=== PATIENT | female | born 1995 | race Hispanic/Latino ===

== ENCOUNTER 2016-08-17 05:27 | Inpatient (IN) | payer OTHER ==
[~2016-08-17] VITALS: Ht 159.4 cm; Wt 83.9 kg
[~2016-08-17 05:27] MED LIST: Docusate Sodium PO; FERR325T39 PO; HYDR-4003 PO; Ibuprofen PO; NOMED; Oxycodone/Acetaminophen PO; PREN1TAB25 PO
[2016-08-17] MEDS ORDERED: Sodium Citrate-Citric Acid 15 mL Solution PO SCH (06:00)
[2016-08-17] MEDS ORDERED: Methylergonovine 0.2 mg/mL Inj IM PRN (06:00)
[2016-08-17] MEDS ORDERED: CeFAZolin Inj 2 GM in IV Premix 1 EACH IV SCH (06:00)
[2016-08-17] MEDS ORDERED: Lactated Ringer's 1,000 ML IV SCH ×2 (06:00→08:42)
[2016-08-17] MEDS ORDERED: Oxytocin 10 Unit/mL Inj IM PRN ×2 (06:00→08:45)
[2016-08-17] MEDS ORDERED: Hemorrhage Kit, Post Partum XX ONE ×2 (06:00→08:45)
[2016-08-17] MEDS ORDERED: Carboprost 250 mCg/mL Inj IM PRN (06:00)
[2016-08-17 06:27] LABS: Mean Corpuscular Hemoglobin 28.2 pg (27.0-35.0); Mean Corpuscular Volume 84.7 fL (81-100)
[2016-08-17] MEDS ORDERED: Morphine PF 1 mg/mL 10 mL Inj INTRATHEC ONE (08:45)
[2016-08-17] MEDS ORDERED: EPHEDrine Sulfate 50 mg/mL Inj IVPUSH PRN (08:45)
[2016-08-17] MEDS ORDERED: Acetaminophen IV 1,000 MG in IV Premix 1 EACH IV PRN (08:45)
[2016-08-17] MEDS ORDERED: Sodium Chloride LOK Flush 10 mL Syringe IVFLUSH PRN (08:45)
[2016-08-17] MEDS ORDERED: LANOlin HPA 7 Gm Ointment TOPICAL PRN (08:45)
[2016-08-17] MEDS ORDERED: HYDROmorphone 1 mg/mL Inj IVPUSH PRN (08:45)
[2016-08-17] MEDS ORDERED: Dexamethasone 4 mg/mL Inj IVPUSH PRN (08:45)
[2016-08-17] MEDS ORDERED: Ondansetron 2 mg/mL 2 mL Inj IVPUSH PRN (08:45)
[2016-08-17] MEDS ORDERED: Oxytocin 30 Units/500 mL LR 30 UNITS in IV Premix 1 EACH IV PRN (08:45)
[2016-08-17] MEDS ORDERED: hydrOXYzine Pamoate 25 mg Capsule PO PRN (08:45)
[2016-08-17] MEDS ORDERED: fentaNYL-PF 50 mCg/mL 2 mL Inj IVPUSH PRN (08:45)
[2016-08-17] MEDS ORDERED: MetoCLOpramide 5 mg/mL 2 mL Inj IVPUSH PRN (08:45)
[2016-08-17] MEDS ORDERED: Atropine 0.4 mg/mL Inj IV PRN (08:45)
--- NOTE | 2016-08-17 08:45 | PCM.HPANE ---
Patient Data Date of Service: Aug 17, 2016 (0700) Surgeon Admitting Provider:Aram Miguel MD Attending Provider:Aram Miguel MD Primary Care Physician:Corey Marcos MD Other Provider:Guerrero Romero Anesthesia Reason for Visit repeat section repeat section Ht/WT & BMI Body Mass Index Allergies Coded Allergies: No Known Allergies (Verified Allergy, Unknown, 12/28/13) Diabetes History Hx Diabetes?: No Medications Reported Medications Vit#96/Ferrous Fum/FA ( Tablet)1 Each Tablet1 Each PO DAILY 12/28/13 No Historical Medication Ea 02/26/13 Discontinued Reported Medications Ferrous Sulfate (Iron)325 Mg [id number] Mg PO BID 12/28/13 Discontinued Scripts Hydrocodone-Acetaminophen 5-325 mg 1 Each Tablet1 Tablet PO QID PRN For Pain #8 TABLET Ref 0 Prov:Shun Peterson PAC 04/10/16 [Docusate Sodium] (Colace)100 MG CAPSULE No Conflict [id number] Mg PO BID #30 CAPSULE Ref 1 Prov:Aram Miguel MD 01/01/14 [Oxycodone/Acetaminophen] (Percocet 5/325 mg)1 TAB TABLET No Conflict Check1-2 Tab PO Q3H PRN For Pain #30 TABLET Ref 0 Prov:Aram Miguel MD 01/01/14 [Ibuprofen] (Motrin)800 MG TABLET No Conflict [id number] Mg PO Q6H PRN For Pain # 30 TABLET Ref 1 Prov:Aram Miguel MD 01/01/14 History Cardiovascular History: Denies:: Congestive Heart Failure Hypertension Respiratory History: Denies:: Tuberculosis Hx Surgeries?: No Hx Diabetes: No Hx Alcohol Use: NoHx Substance Use: No Smoking Status: Never Smoker Have You Smoked inLast 12 mo: No Stop/Bang Risk Assessment Category Category 1A: Patient has history of documented sleep apnea, and HAS NOT received any narcotic, sedative or anesthesia administration during this stay. Category 1B: Patient has history of documented sleep apnea, and HAS received any narcotic , sedative or anesthesia administration during this stay Category 2: Patient has SUSPECTED Obstructive Sleep Apnea, and HAS received any narcotic , sedative or anesthesia administration during this stay. Category 3: Patient has SUSPECTED Obstructive Sleep Apnea and HAS NOT received narcotic, sedative or anesthesia administration during this stay. Category 4: Outpatient in Procedural Areas with known sleep apnea or who screen positive for High Risk via the STOP/BANG questionnaire. Exam Exam General Appearance: Alert, Oriented X3, Cooperative, No Acute Distress HEENT/AIRWAY: MP 2, Neck Movement (FROM), Mouth Opening (3 FBMO) Lungs: Clear to Auscultation, Normal Air Movement Heart: Exam Unremarkable, Regular Rate/Rhythm, No Murmurs/Rubs/Gallops Meds/Labs/Diagnostics Admission Meds Current Medications Lactated Ringer's (Lr) 1,000 ml @ 125 mls/hr Q8H IV Last administered on 06:21; Start 08/17/16 at 06:00; Stop 08/17/16 at 13:59 Citric Acid/ Sodium Citrate (Bicitra) 30 ml PREOP PO Last administered on 07:29; Start 08/17/16 at 06:00; Stop 08/17/16 at 06:02; Status DC Labs Test 08/17/16 06:05 White Blood Count 7.2th/mm3 (3.8-10.1) Red Blood Count 4.18mil/mm3 (3.90-5.20) Hemoglobin 11.8g/dL (12.0-15.6) Hematocrit 35.4% (35.0-46.0) Mean Corpuscular Volume 84.7fL (81-100) Mean Corpuscular Hemoglobin 28.2pg (27.0-35.0) Mean Corpuscular Hemoglobin Concent 33.3% (32.0-37.0) Red Cell Distribution Width 14.8% (12.3-15.4) Platelet Count 133bil/L (150-400) Plan Impression Patient chart reviewed, patient interviewed and anesthestic plan with risks, benefits, and alternatives discussed, and informed consent obtained. NPO Status: > 8 hrs ASA Physical Status: ASA1 Normal Healthy Anesthetic Plan: SAB Bene/Risks/Altern/Consents: Yes HP Complete Prior to Induction: Yes Hitesh Foster MD Aug 17, 2016 08:45
--- NOTE | 2016-08-17 08:47 | PCM.ANEP2 ---
Post Anesthesia Evaluation ASA/CMS Post Anesthesia VS in Patient's Normal Range?: Yes Resp Stable; Airway Patent?: Yes CV Function & Hydration Stable: Yes Mental Status Recovered?: Yes Pain control Satisfactory?: Yes N/V Control Satisfactory?: Yes Hitesh Foster MD Aug 17, 2016 08:47
--- NOTE | 2016-08-17 08:47 | PCM.ANEP1 ---
Post Anesthesia Phase 1 PACU Phase 1 Assessment Date of Service: Aug 17, 2016 (0700) Anesthetic Administered: SAB Level of Alertness: Awake, talking RIVERO's with Equal Strength: No (SAB still working) Pain: No Nausea or Vomiting: No Oxygen Delivery: Room Air Lungs: Clear to Auscultation, Normal Air Movement Dermatome Level: T8 (Costal Margin) Hitesh Foster MD Aug 17, 2016 08:47
--- NOTE | 2016-08-17 11:30 | OP ---
[address] [address] OPERATIVE REPORT PATIENT: CHELSEA BLANTON I : 1995 MR#: [id number] ADMIT: 08/17/2016 JOB ID: [id number] DATE OF SURGERY: 08/17/2016 PREOPERATIVE DIAGNOSIS(ES): 1. 2, para 1 female at 39-1/2 weeks estimated gestational age. 2. Prior caesarean section x1. POSTOPERATIVE DIAGNOSIS(ES): 1. 2, para 1 female at 39-1/2 weeks estimated gestational age. 2. Prior caesarean section x1. SURGERY: Repeat low transverse section via Pfannenstiel incision. SURGEON: Aram Miguel MD. VICE PRESIDENT OF SOFTWARE DEVELOPMENT: Corey Marcos MD. ANESTHESIA: Spinal. INDICATION: History of prior . COMPLICATIONS: None. FINDINGS: 1. Vigorous male. 2. Normal uterus, tubes, and ovaries. 3. Minimal scarring. ESTIMATED BLOOD LOSS: 700 cc. INTRAVENOUS FLUIDS IN: 1700 cc of lactated Ringer's. URINE OUT: 500 cc of clear urine. PATHOLOGY: None. DETAIL: The patient was taken back to the OR, where spinal anesthesia was performed. She was given 2 g of Ancef prior to the procedure. Once this had been done, she was prepped and draped in the usual fashion, and a procedural time-out was performed. The procedural time-out was followed by the incision, which was done over her prior incision. This was carried through to the underlying layer of fascia using the knife and our fingers. Fascia was incised in the midline and the incision was carried laterally with the Deras scissors. Fascia was elevated both superiorly and inferiorly using Arnie clamps and was from the underlying layer of muscle using the Bovie. The muscle was then entered in the midline superiorly using a hemostat. This was developed further using her fingers and by stretching and ultimately sufficient room for the surgery was created. The bladder blade was inserted. A bladder flap was created on the lower uterine segment and this was somewhat successful but due to scarring not completely successful. At this same site, the knife was used to enter the uterus but final entry into the uterus was done with my fingers. The bandage scissors was used to extend the uterine incision laterally in each direction. Once this had been done, the amniotic sac was ruptured. The delivered fairly easily and 30 seconds of delayed cord clamping was done on the surgical field. The was crying during this time, and was being dried. The cord was then clamped and cut, and the was handed off to the awaiting nurses. Once this had been done, cord blood was sent for analysis. The placenta was manually extracted and the uterus was exteriorized. The uterus was cleared of all clots and debris, as well as membranes. Allis clamps were used to valdemar the edge of the uterus and the uterus was closed using 1-0 chromic in a running, locked fashion. An imbricating layer was placed. Once the uterus was sufficiently hemostatic, the pelvis was irrigated and the uterus was replaced back into the pelvis. It was again observed and found to be hemostatic. A layer of Interceed was used to prevent future scarring. Attention was then paid to the muscle, which was closed in the usual fashion using 2-0 chromic suture. Once this had been done, the fascia was closed using 0 Vicryl in a running fashion. No subcutaneous layer was needed, given the patient's lack of fat. The wound was closed using ann-marie. A standard dressing was applied. The patient was in excellent condition following the procedure and there were no other complications. Counts were correct x3.
[2016-08-17] MEDS ORDERED: Morphine PF 1 mg/mL 10 mL Inj ONE (12:17)
[2016-08-17] MEDS ORDERED: Oxytocin 10 Unit/mL Inj ONE (12:54)
[2016-08-17] MEDS ORDERED: Ondansetron 2 mg/mL 2 mL Inj ONE (12:54)
[2016-08-17] MEDS ORDERED: EPHEDrine/NS 5 mg/mL 5 mL Syringe ONE (12:54)
[2016-08-17] MEDS ORDERED: Bupiv-Spinal 0.75%/Dex 8.25% 2 mL Inj ONE (12:54)
[2016-08-17] MEDS ORDERED: Phenylephrine/NS-PF 100 mCg/mL 5 mL Syringe IVPUSH ONE (12:54)
[2016-08-17] MEDS ORDERED: Propofol 10,000 mCg/mL 20 mL Inj ONE (12:54)
[2016-08-17] MEDS: HYDROcodone-APAP 5-325 mg Tablet PO PRN ×2 (15:34→21:22)
[2016-08-18] MEDS: HYDROcodone-APAP 5-325 mg Tablet PO PRN (03:35)
--- NOTE | 2016-08-18 07:19 | PCM.PNOBPP ---
Subjective Date of Service Aug 18, 2016 Post : Repeat Ceserean Delivery Lochia: Normal Pain Management: PO pain meds Gastrointestinal: Good Appetite, No N/V Postop Activity: Ambulating Independently Labs Laboratory Tests 08/17/16 06:05: White Blood Count 7.2, Red Blood Count 4.18, Hemoglobin 11.8, Hematocrit 35.4, Mean Corpuscular Volume 84.7, Mean Corpuscular Hemoglobin 28.2, Mean Corpuscular Hemoglobin Concent 33.3, Red Cell Distribution Width 14.8, Platelet Count 133 Exam Vital Signs Vital Signs: VS reviewed, stable Exam Abdomen: Fundus firm Extremities: No cords Lungs: Clear to Auscultation General: Alert, Oriented X3 Surgical Wound : Incision General Appearence: [place] Dressing & Drainage Status: Dry & Intact OB Post Assessment/Plan Problems: (1) S/P repeat low transverse Status: Acute ICD Code: Z98.89 Pain Evaluation: Adequate Pain Control Post plan: Continue routine post care, Discharge home tomorrow Aram Miguel MD Aug 18, 2016 07:19
[2016-08-18 08:41] LABS: Mean Corpuscular Hemoglobin 28.5 pg (27.0-35.0); Mean Corpuscular Volume 86.7 fL (81-100)
[2016-08-18] MEDS: oxyCODONE-Acetamin 5-325 mg Tablet PO PRN ×3 (11:44→23:11)
[2016-08-19] MEDS: oxyCODONE-Acetamin 5-325 mg Tablet PO PRN ×3 (03:18→14:41)
--- NOTE | 2016-08-19 12:59 | PCM.DC.OB ---
Obstetrical Discharge Summary Date of Service Aug 19, 2016 Date of hospital admission Aug 17, 2016 at 05:27 Date of Discharge: Aug 19, 2016 Providers Admitting Physician: Shaquille Berry MD Primary Care Physician: Corey Marcos MD Attending Physician: Shaquille Berry MD Problems: (1) S/P repeat low transverse Status: Acute ICD Code: Z98.89 Consultations Shaquille Berry MD for Invasive procedures Repeat LTCS Date of Procedure: Aug 17, 2016 Hospital Course: Patient presented for repeat and this went well. Recovered in excellent fashion. No Historical Medication (No Historical Medication) Ea (Reported) Vit#96/Ferrous Fum/FA ( Tablet) 1 Each Tablet 1 EACH PO DAILY ( Reported) Discontinued Medications ([Ibuprofen]) 800 MG TABLET 800 MG PO Q6H PRN PRN For Pain Prescribed by: SHAQUILLE BERRY MD ([Oxycodone/Acetaminophen]) 1 TAB TABLET 1-2 TAB PO Q3H PRN PRN For Pain Prescribed by: SHAQUILLE BERRY MD ([Docusate Sodium]) 100 MG CAPSULE 100 MG PO BID Prescribed by: SHAQUILLE BERRY MD Ferrous Sulfate (Iron) 325 Mg Tablet 325 MG PO BID (Reported) Hydrocodone-Acetaminophen 5-325 mg (Hydrocodone-Acetaminophen 5-325 mg) 1 Each Tablet 1 TABLET PO QID PRN PRN For Pain Prescribed by: GERARDO PIPER, JACQUE Follow-up plan See PCM at every well baby exam and at 8 weeks in f/u. Discharge Diet: No restrictions Discharge Activity-General: Pelvic Rest for 6 weeks, Pelvic Rest, Activity as pain allows, No lifting >15 pounds for 2 weeks copies to: Corey Marcos MD, David B MD Aug 19, 2016 12:59
--- NOTE | 2016-08-19 13:00 | PCM.DIOB ---
Obstetrical Disch Instruction Date of Service: Aug 19, 2016 Dates of Hospitalization Date of Hospital Admission Aug 17, 2016 at 05:27 Providers Admitting Physician: Aram Miguel MD Primary Care Physician: Corey Marcos MD Attending Physician: Aram Miguel MD Discharge Diagnosis Problems: (1) S/P repeat low transverse Status: Acute ICD Code: Z98.89 Diet Discharge Diet: No restrictions Activity Discharge Activity-General: Pelvic Rest for 6 weeks, Try not to overdue, Activity as energy allows, No lifting >15 pounds for 2 weeks Dressing and Incisional Care Dressing Care: Allow Steri Stripes to fall off Hygiene: May shower Follow Up Plan Follow-up Provider (F9): Corey Marcos MD Follow-up appointment: Weeks (2) Call your provider for: Fever or Chills, Shortness of breath, Heavy vaginal bleeding, Excessive constipation, Red painful breasts Aram Miguel MD Aug 19, 2016 13:00
[2016-08-19] MEDS ORDERED: IBUP800T28 PO (13:01)
[2016-08-19] MEDS ORDERED: OXYC1TAB24 PO (13:01)
[2016-08-19] MEDS ORDERED: DOCU-41 PO (13:01)
[2016-08-19 13:11] VITALS: BP 101/66; PULSE 55; RESP 18
== END 2016-08-19 15:25 | disposition home or self-care (01) | DRG 540 ==
LOC: FBC 05:27 → EDSTATUS 07:15
PROVIDERS: ADMIT Family Medicine; ATTEND Family Medicine
PROC: 10D00Z1 Extraction of Products of Conception, Low, Open Approach (ICD-10-PCS; principal; 2016-08-17 07:15)
DX: O34.211 Maternal care for low transverse scar from previous cesarean delivery (principal); Z3A.39 39 weeks gestation of pregnancy; Z37.0 Single live birth